=== PATIENT | female | born 1995 | race Caucasian/White ===

== ENCOUNTER 2020-02-23 17:00 | Emergency (ER) | payer MEDICAID, OTHER ==
[~2020-02-23] VITALS: Ht 152.4 cm; Wt 69.4 kg
[2020-02-23 17:11] VITALS: BP 104/68
--- NOTE | 2020-02-23 17:26 | ED Integumentary General ---
General Chief Complaint: Skin/Wound Problems Stated Complaint: SKIN SORE Nursing Triage Note: pt amb to triage with complaint of sore on right wrist. states went to urgent care in [place] 3 days ago and prescribed keflex. pt is 21 weeks . states wrist is worsening. Source: patient Exam Limitations: no limitations History of Present Illness Date Seen by Provider: Feb 23, 2020 Time Seen by Provider: 17:06 Initial Comments Patient presents ER by private conveyance with chief complaint she has a boil on her right forearm anterior side. She says been there for about 4 or 5 days. She went to the ER [place] and they did not bradford it but they put her on cephalosporin. She says some of the redness around it went away but it is getting larger and more painful. She does not have a history of many boils or hidradenitis supritiva. No fevers nausea vomiting or any other compromise. Allergies and Home Medications Allergies Coded Allergies: No Known Drug Allergies (Unverified , 02/23/20) Patient Home Medication List Home Medication List Reviewed: Yes Review of Systems Review of Systems Constitutional: No chills, No diaphoresis EENTM: No ear discharge, No ear pain Respiratory: No cough, No short of breath Cardiovascular: No chest pain, No edema Gastrointestinal: No abdominal pain, No nausea Genitourinary: No discharge, No dysuria Musculoskeletal: No back pain, No joint pain Skin: No pruritus, No rash All Other Systems Reviewed Negative Unless Noted: Yes Past Dmuiynq-Ampxdi-Gvhtum Hx Patient Social History Alcohol Use: Denies Use Recreational Drug Use: No Smoking Status: Never a Smoker Recent Foreign Travel: No Contact w/Someone Who Travel: No Recent Infectious Disease Expo: No Recent Hopitalizations: No Immunizations Up To Date Tetanus Booster (TDap): Unknown PED Vaccines UTD: Yes Seasonal Allergies Seasonal Allergies: No Past Medical History Surgeries: Yes Gallbladder Respiratory: No Cardiac: No Neurological: No Genitourinary: No Gastrointestinal: No Endocrine: No HEENT: No Cancer: No Psychosocial: No Integumentary: No Physical Exam Vital Signs Vital Signs - First Documented 02/23/20 17:11 Temp 36.7 Pulse 62 Resp 20 B/P (MAP) 104/68 (80) Pulse Ox 98 O2 Delivery Room Air Capillary Refill : Less Than 3 Seconds General Appearance: WD/WN, no apparent distress HEENT: PERRL/EOMI, pharynx normal Neck: full range of motion, normal inspection Cardiovascular: normal peripheral pulses, regular rate, rhythm Respiratory: no respiratory distress, no accessory muscle use Neurologic/Psychiatric: alert, normal mood/affect, oriented x 3 Skin: other (erythematous nodule on the right forearm with pointing and fluctuance palpable. No discharge.) Procedures/Interventions I&D : Site: right forearm Blade Size: 11 I & D Procedure: betadine prep (chlorhexidine) Progress Clean the site with alcohol and infiltrated with 1 cc of 1% lidocaine without epinephrine. When the skin was ascertained to be anesthetized appropriately we then used a 11 blade scalpel to make a small cross lemon incision approximately 3 x 3 mm expressing a little less than 5 cc of purulent material. Patient tolerated procedure well. Sterile clean and dry gauze dressing was placed. Progress/Results/Core Measures Results/Orders Vital Signs/I&O 02/23/20 17:11 Temp 36.7 Pulse 62 Resp 20 B/P (MAP) 104/68 (80) Pulse Ox 98 O2 Delivery Room Air Blood Pressure Mean: 80 Departure Impression Primary Impression: Abscess Disposition: 01 HOME, SELF-CARE Condition: Stable Departure-Patient Inst. Decision time for Depature: 17:29 Patient Instructions: Boil (DC) Add. Discharge Instructions: Keep the wound clean with regular soap and water. Change the dressing as often as it becomes soiled or at least daily until it sea ls over in the next 1-2 days. Discontinue the antibiotics your previously put on. Start taking clindamycin, 2 tablets twice a day for the next 5 days. All discharge instructions reviewed with patient and/or family. Voiced understanding. Scripts Clindamycin HCl (Clindamycin HCl) 300 Mg Capsule 600 MG PO BID for 5 Days, #20 CAP 0 Refills Prov: LEONILA CASON 02/23/20 LEONILA CASON Feb 23, 2020 17:26
[2020-02-23] MEDS ORDERED: CLIN300C11 PO (17:39)
== END 2020-02-23 17:50 | disposition home or self-care (01) ==
LOC: ER 17:02
DX: L02.413 Cutaneous abscess of right upper limb (principal)
CPT/HCPCS: 10060